=== PATIENT | male | born 1965 | race Caucasian/White ===

== ENCOUNTER 2016-10-12 00:46 | Emergency (ER) | payer MEDICARE, MEDICAID ==
[~2016-10-12] VITALS: Ht 162.6 cm; Wt 77.0 kg
[2016-10-12 00:50] VITALS: BP 134/71
== END 2016-10-12 05:32 | disposition left against medical advice (07) ==
LOC: ER 00:46
DX: F29 Unspecified psychosis not due to a substance or known physiological condition (principal); Z53.21 Procedure and treatment not carried out due to patient leaving prior to being seen by health care provider